=== PATIENT | female | born 1960 | race Caucasian/White ===

== ENCOUNTER 2018-03-04 09:56 | Emergency (ER) | payer BC ==
[~2018-03-04] VITALS: Ht 170.2 cm; Wt 77.1 kg
== END 2018-03-04 11:50 | disposition home or self-care (01) ==
LOC: ER 09:56
DX: S83.92XA Sprain of unspecified site of left knee, initial encounter (principal); W18.2XXA Fall in (into) shower or empty bathtub, initial encounter
CPT/HCPCS: 73564; 99283